=== PATIENT | male | born 1975 | race Caucasian/White ===

== ENCOUNTER 2020-07-09 13:04 | Emergency (ER) | payer OTHER ==
--- NOTE | 2020-07-09 13:46 | CR ---
[id number] RAD/RAD Foot Left 3V Min EXAM: RAD Foot Left 3V Min CLINICAL DATA: TRAUMA COMPARISON: No previous similar exam is available. FINDINGS: A nondisplaced fracture at the base of the left fifth metatarsal is seen. IMPRESSION: FIFTH METATARSAL FRACTURE Kishor Merida MD 07/09/20 0595 Thank you for allowing us to participate in the care of your patient.
--- NOTE | 2020-07-09 15:08 | EDM.PDOC ---
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 Pt. states that he "twisted his foot" and began experiencing the discomfort in L lateral foot area. States that this happened the previous night. Denies any injury to the ankle or lower leg. He is able to bear weight, but with increased discomfort. Onset: Today Location: Reports: Lower Extremity, Left Left Foot Pain Score (Numeric/FACES): 2 - Related Data Allergies Allergy/AdvReac Type Severity Reaction Status Date / Time No Known Allergies Allergy Verified 07/09/20 13:27 Home Meds: Home Meds . [No Known Home Meds] 07/09/20 [History] Past Medical History - Past Health History Medical/Surgical History: Denies Medical/Surgical History Social & Family History - Tobacco Use Tobacco Use Status *Q: Unknown Ever Used Tobacco Review of Systems - Review of Systems Review Of Systems: Comprehensive ROS is negative, except as noted in HPI. ED EXAM, GENERAL - Physical Exam Exam: See Below Exam Limited By: No Limitations General Appearance: Alert, WD/WN, No Apparent Distress Extremities: Other (Minimal edema to L lateral foot. No ecchymosis. No bony deformity. No crepitus noted.) Course - Vital Signs Last Recorded V/S: Last Vital Signs Temp 35.6 C L 07/09/20 13:10 Pulse 85 07/09/20 13:10 Resp 18 07/09/20 13:10 BP 124/85 07/09/20 13:10 Pulse Ox 98 07/09/20 13:10 - Radiology Interpretation Free Text/Narrative:: 5th metatarsal fx. L foot Departure - Departure Time of Disposition: 14:30 Disposition: Home, Self-Care 01 Clinical Impression: Fracture of fifth metatarsal bone of left foot - Discharge Information Instructions: Metatarsal Fracture Referrals: PCP,None [Primary Care Provider] - Forms: ED Department Discharge Additional Instructions: Wear boot, especially when active. You are able to walk on it with the boot. Ibuprofen 200mg 3 tabs every 6 hours as needed for pain Contact [facility] to make an appointment with Podiatry either in [place] or [place] within 2 weeks at the request of Dr. Montiel. Sepsis Event Note (ED) - Evaluation Sepsis Screening Result: No Definite Risk - Focused Exam Vital Signs: Vital Signs Temp Pulse Resp BP Pulse Ox 07/09/20 13:10 35.6 C L 85 18 124/85 98 - Problem List Review Problem List Initiated/Reviewed/Updated: Yes - Assessment/Plan Plan: Wear boot, especially when active. You are able to walk on it with the boot. Ibuprofen 200mg 3 tabs every 6 hours as needed for pain Contact [facility] to make an appointment with Podiatry either in [place] or [place] within 2 weeks at the request of Dr. Montiel.
== END 2020-07-09 14:38 | disposition home or self-care (01) ==
LOC: VM.ED 13:04
DX: S92.352A Displaced fracture of fifth metatarsal bone, left foot, initial encounter for closed fracture (principal); R60.0 Localized edema; X50.1XXA Overexertion from prolonged static or awkward postures, initial encounter
CPT/HCPCS: 73630-LT; 99283